=== PATIENT | female | born 1935 | race Two or more races ===

== ENCOUNTER 2016-09-30 00:22 | Observation (INO) | payer SELFPAY ==
[2016-09-30] MEDS ORDERED: ASPIRIN 81 MG TABLET, CHEWABLE PO ONE (00:32)
--- NOTE | 2016-09-30 00:50 | ER Document Report ---
ED General - General Chief Complaint: Shortness Of Breath Stated Complaint: SHORT OF BREATH,CHEST PAIN Mode of Arrival: Ambulatory Information source: Patient, Relative - grandson Notes: Patient presents to the emergency department with complaints of chest pain and shortness of breath. Patient reports that for the last couple days she's had a chest pain on the left side of her chest with her left arm hurting and shortness of breath. Tonight the pain increased. Her grandson is interpreting for her because she is and does not understand Vietnamese. She denies past medical history of MS CAD, but reports history of high blood pressure. She is a former smoker. Denies fever vomiting diarrhea. Family reports patient has been forgetful for the past 2 weeks little bit confused. Patient reports chest pain. Like she's been cut. TRAVEL OUTSIDE OF THE [place] IN LAST 30 DAYS: No - HPI Onset: Other - last few days Onset/Duration: Persistent Quality of pain: Sharp - cut Severity: Severe Pain Level: 4 - Related Data Allergies/Adverse Reactions: No Known Allergies Allergy (Verified 09/30/16 01:41) Home Medications: Current Home Medications Enalapril Maleate [Vasotec 10 mg Tablet] 1 tab PO BID 09/30/16 [History] Metoprolol Tartrate [Lopressor 100 mg Tablet] 1 tab PO Q12 09/30/16 [History] Past Medical History - General Information source: Patient, Relative - grandson - Social History Smoking Status: Former Smoker Cigarette use (# per day): No Frequency of alcohol use: None Drug Abuse: None Lives with: Family Family History: Reviewed & Not Pertinent - Past Medical History Cardiac Medical History: Reports: Hx Hypertension Past Surgical History: Reports: Hx Section Review of Systems - Review of Systems Notes: Review HPI for review of systems., All other systems negative Physical Exam - Vital signs Vitals: Temp Pulse Resp BP Pulse Ox 97.9 F 77 18 177/62 H 97 09/30/16 00:30 09/30/16 00:30 09/30/16 00:30 09/30/16 00:30 09/30/16 00:30 - Notes Notes: PHYSICAL EXAMINATION: GENERAL: Well-appearing and in no acute distress Nontoxic looking HEAD: Atraumatic, normocephalic. EYES: Pupils equal round , extraocular movements intact, sclera anicteric, conjunctiva are normal. ENT: nares patent, Moist mucous membranes. NECK: Normal range of motion, supple without lymphadenopathy LUNGS: CTAB and equal. No wheezes rales or rhonchi. HEART: Regular rate and rhythm without murmurs ABDOMEN: Soft, no tenderness. No guarding, no rebound EXTREMITIES: Normal range of motion, no pitting edema. NEUROLOGICAL: Cranial nerves grossly intact. Normal sensory/motor PSYCH: Normal mood, normal affect. SKIN: Warm, Dry, normal turgor, no rashes or lesions noted Course - Re-evaluation Re-evalutation: 09/30/16 02:04 History =1 ECG-=1 Age 80-=2 Risk Factors= 1 Troponin =0 HEART score-= 5 09/30/16 02:31 Patient reports chest pain went away after sublingual nitroglycerin. Reports headache increased. Consulted Dr Henriquez he agrees with admission 09/30/16 02:[address] Le patient be admitted to telemetry obvious family and patient updated on plan of care - Vital Signs Vital signs: Temp Pulse Resp BP Pulse Ox 97.7 F 57 L 16 137/49 H 96 09/30/16 04:54 09/30/16 04:54 09/30/16 04:54 09/30/16 04:54 09/30/16 04:54 - Laboratory Result Diagrams: 09/30/16 01:20 09/30/16 01:20 Laboratory results interpreted by md: 09/30/16 09/30/16 09/30/16 01:08 01:20 01:20 BUN 25 H NT-Pro-B Natriuret Pep 544 H Lipase 328.0 H Urine Blood MODERATE H Ur Leukocyte Esterase MODERATE H - Diagnostic Test Radiology reviewed: Image reviewed, Reports reviewed - IMPRESSION: NO ACUTE RADIOGRAPHIC FINDING IN THE CHEST. - EKG Interpretation by Oh EKG shows normal: Sinus rhythm Additional EKG results interpreted by md: 09/30/16 02:35 SR, inverted T in septal/lateral Discharge - Discharge Clinical Impression: Shortness of breath Chest pain Qualifiers: Chest pain type: unspecified Qualified Code(s): R07.9 - Chest pain, unspecified Disposition: ADMITTED OBSERVATION Admitting Provider: Janet Le Unit Admitted: Telemetry
[2016-09-30 01:28] LABS: ABSOLUTE BASOPHILS # (AUTO) 0.1 10^3/uL (0.0-0.2); ABSOLUTE EOSINOPHILS # (AUTO) 0.2 10^3/uL (0.0-0.6); ABSOLUTE LYMPHOCYTES (AUTO) 2.4 10^3/uL (0.5-4.7); ABSOLUTE MONOCYTES (AUTO) 0.7 10^3/uL (0.1-1.4); ABSOLUTE NEUT (AUTO) 3.6 10^3/uL (1.7-8.2); BASOPHILS % (AUTO) 1.2 % (0-2); EOSINOPHILS % (AUTO) 3.4 % (0-6); HEMATOCRIT 41.5 % (36.0-47.0); HEMOGLOBIN 13.9 g/dL (12.0-15.5); HGB HCT DIFFERENCE 0.2; LYMPHOCYTES % (AUTO) 34.2 % (13-45); MEAN CORPUSCULAR HEMOGLOBIN 31.9 pg (27.0-33.4); MEAN CORPUSCULAR HGB CONC 33.5 g/dL (32.0-36.0); MEAN CORPUSCULAR VOLUME 95 fl (80-97); MONOCYTES % (AUTO) 9.9 % (3-13); RED BLOOD COUNT 4.36 10^6/uL (3.72-5.28); RED CELL DISTRIBUTION WIDTH 13.1 % (11.5-14.0); SEGMENTED NEUTROPHILS % (AUTO) 51.3 % (42-78); WHITE BLOOD COUNT 6.9 10^3/uL (4.0-10.5)
[2016-09-30 01:48] LABS: APPEARANCE,URINE SLIGHTLY-CLOUDY; BILIRUBIN,URINE NEGATIVE (NEGATIVE); GLUCOSE, URINE NEGATIVE (NEGATIVE); KETONES,URINE NEGATIVE (NEGATIVE); LEUKOCYTE ESTERASE,URINE MODERATE (NEGATIVE); NITRITE,URINE NEGATIVE (NEGATIVE); PROTEIN,URINE NEGATIVE (NEGATIVE); URINE SPECIFIC GRAVITY 1.014; UROBILINOGEN,URINE NEGATIVE mg/dL (<2.0)
[2016-09-30 01:52] LABS: ALANINE AMINOTRANSFERASE 33 U/L (9-52); ALBUMIN 3.9 g/dL (3.5-5.0); ALKALINE PHOSPHATASE 119 U/L (38-126); ANION GAP 10 (5-19); ASPARTATE AMINO TRANSFERASE 27 U/L (14-36); BILIRUBIN,TOTAL 0.3 mg/dL (0.2-1.3); BLOOD UREA NITROGEN 25 mg/dL (7-20); CALCIUM 9.1 mg/dL (8.4-10.2); CARBON DIOXIDE 28 mmol/L (22-30); CHLORIDE 104 mmol/L (98-107); CREATINE KINASE 49 U/L (30-135); CREATININE RESULT 0.83 mg/dL (0.52-1.25); GLUCOSE 104 mg/dL (75-110); POTASSIUM 4.1 mmol/L (3.6-5.0); TOTAL PROTEIN 7.1 g/dL (6.3-8.2)
[2016-09-30 02:04] LABS: CREATINE KINASE MB 0.94 ng/mL (<4.55)
[2016-09-30 02:08] LABS: TROPONIN I < 0.012 ng/mL
[2016-09-30] MEDS ORDERED: NITROGLYCERIN 0.4 MG/TAB 25 TAB/BOTTLE SL PRN ×2 (02:10→02:40)
[2016-09-30] MEDS ORDERED: NITROGLYCERIN 2% OINTMENT 1 GM PACKET TP ONE (02:12)
[2016-09-30] MEDS ORDERED: IBUPROFEN 800 MG TABLET PO ONE (02:31)
[2016-09-30] MEDS ORDERED: FUROSEMIDE INJ/PF 40 MG/4 ML SDV IV ONE (02:40)
[2016-09-30] MEDS ORDERED: MAG HYDROX/AL HYDROX/SIMETH SUSP 30 ML UDCUP PO PRN (02:40)
[2016-09-30] MEDS ORDERED: LACTULOSE SYRUP 20 GM/30 ML UDCUP PO ONE (02:40)
[2016-09-30] MEDS ORDERED: ONDANSETRON HCL INJ/PF 4 MG/2 ML SDV IV PRN (02:40)
[2016-09-30] MEDS ORDERED: ENALAPRIL MALEATE 5 MG TABLET PO ONE (03:15)
[2016-09-30] MEDS ORDERED: ATORVASTATIN CALCIUM 80 MG TABLET PO ONE (03:15)
[2016-09-30] MEDS ORDERED: FAMOTIDINE 20 MG TABLET PO ONE (03:15)
--- NOTE | 2016-09-30 04:48 | PDOC H&P ---
History of Present Illness Admission Date/PCP: 09/30/16 02:40 Patient complains of: Left-sided chest pain History of Present Illness: SHAWNA CADET is a 80 year old Hebrew-speaking female with a past medical history of hypertension, who had been her usual state of health until approximately 48 hours ago having the onset of left-sided chest pain noted while at rest. He was dull in nature but exacerbated by movement of her left arm and palpation to her left chest wall she cannot recall a trauma, but also denies nausea vomiting diaphoresis or palpitations. She denies previous episode. Is currently pain-free. In the emergency room she's found to have mildly uncontrolled hypertension and an otherwise unremarkable workup she's referred to the hospitalist for observation. Past Medical History Cardiac Medical History: Reports: Hypertension Pulmonary Medical History: Reports: None EENT Medical History: Reports: None Neurological Medical History: Reports: None Endocrine Medical History: Reports: None Renal/ Medical History: Reports: None GI Medical History: Reports: None Musculoskeltal Medical History: Reports: Arthritis Psychiatric Medical History: Reports: None Traumatic Medical History: Reports: None Hematology: Reports: None Infectious Medical History: Reports: None Past Surgical History Past Surgical History: Reports: Section - x1 Social History Information Source: Patient Lives with: Family Smoking Status: Former Smoker Number of Years Smokin Last Time Smoked: 1970 Frequency of Alcohol Use: None Drugs: None Hx Prescription Drug Abuse: No - Advance Directive Resuscitation Status: Full Code Family History Family History: COPD, Hypertension Parental Family History Reviewed: Yes Children Family History Reviewed: Yes Sibling(s) Family History Reviewed.: Yes Medication/Allergy Home Medications: Enalapril Maleate [Vasotec 10 mg Tablet] 1 tab PO BID 09/30/16 Metoprolol Tartrate [Lopressor 100 mg Tablet] 1 tab PO Q12 09/30/16 Allergies/Adverse Reactions: No Known Allergies Allergy (Verified 09/30/16 01:41) Review of Systems Constitutional: ABSENT: chills, fever(s), headache(s), weight gain, weight loss Eyes: ABSENT: visual disturbances Ears: ABSENT: hearing changes Cardiovascular: ABSENT: chest pain, dyspnea on exertion, edema, orthropnea, palpitations Respiratory: ABSENT: cough, hemoptysis Gastrointestinal: PRESENT: constipation. ABSENT: abdominal pain, diarrhea, hematemesis, hematochezia, nausea, vomiting Genitourinary: ABSENT: dysuria, hematuria Musculoskeletal: ABSENT: joint swelling Integumentary: ABSENT: rash, wounds Neurological: ABSENT: abnormal gait, abnormal speech, confusion, dizziness, focal weakness, syncope Psychiatric: ABSENT: anxiety, depression, homidical ideation, suicidal ideation Endocrine: ABSENT: cold intolerance, heat intolerance, polydipsia, polyuria Hematologic/Lymphatic: ABSENT: easy bleeding, easy bruising Physical Exam Vital Signs: Temp Pulse Resp BP Pulse Ox 97.4 F 59 L 21 H 123/88 H 98 09/30/16 04:17 09/30/16 04:17 09/30/16 04:21 09/30/16 04:21 09/30/16 04:21 General appearance: PRESENT: no acute distress, well-developed, well-nourished Head exam: PRESENT: atraumatic, normocephalic Eye exam: PRESENT: conjunctiva pink, EOMI, PERRLA. ABSENT: scleral icterus Ear exam: PRESENT: normal external ear exam Mouth exam: PRESENT: moist, tongue midline Neck exam: ABSENT: carotid bruit, JVD, lymphadenopathy, thyromegaly Respiratory exam: PRESENT: clear to auscultation joe. ABSENT: rales, rhonchi, wheezes Cardiovascular exam: PRESENT: RRR. ABSENT: diastolic murmur, rubs, systolic murmur Pulses: PRESENT: normal dorsalis pedis pul Vascular exam: PRESENT: normal capillary refill GI/Abdominal exam: PRESENT: normal bowel sounds, soft. ABSENT: distended, guarding, mass, organolmegaly, rebound, tenderness Rectal exam: PRESENT: deferred Extremities exam: PRESENT: full ROM. ABSENT: calf tenderness, clubbing, pedal edema Musculoskeletal exam: PRESENT: other - Reproducible chest wall pain to the left pectoralis major. No breast pain patient verifies this is the pain that she seeks evaluation of Neurological exam: PRESENT: alert, awake, oriented to person, oriented to place , oriented to time, oriented to situation, CN II-XII grossly intact. ABSENT: motor sensory deficit Psychiatric exam: PRESENT: appropriate affect, normal mood. ABSENT: homicidal ideation, suicidal ideation Skin exam: PRESENT: dry, intact, warm. ABSENT: cyanosis, rash Results Impressions: Chest X-Ray 09/30/16 00:33 IMPRESSION: NO ACUTE RADIOGRAPHIC FINDING IN THE CHEST. Assessment & Plan - Diagnosis (1) Atypical chest pain Is this a current diagnosis for this admission?: YesPlan: Atypical chest pain symptomatically management. though the patient's pain is atypical there are multiple risk factors for coronary artery disease and subsequently will observe and evaluation of acute coronary syndrome versus coronary artery disease with anginal equivalents. Cardiac monitoring blood pressure Q6 hours ,TSH, lipid profile, serial cardiac enzymes (2) Hypertension Is this a current diagnosis for this admission?: YesPlan: Continue outpatient Lopressor and DOMINGO inhibitor (3) Constipation Is this a current diagnosis for this admission?: YesPlan: Lactulose and bowel regiment - Time Time Spent: 30 to 50 Minutes
[2016-09-30] MEDS ORDERED: INFLUENZA ADLT QUAD (36MOS+) 2016-17 VAC 0.5 ML SYR IM PRN (05:23)
[2016-09-30] MEDS ORDERED: HEPARIN SOD (PORCINE) 5,000 UNIT/ML 1 ML SYRINGE SUBCUT SCH (06:00)
[2016-09-30 07:39] LABS: CHOLESTEROL 219.29 mg/dL (0-200); CREATINE KINASE 50 U/L (30-135); Direct HDL 60 mg/dL (>40); TRIGLYCERIDES 85 mg/dL (<150)
[2016-09-30 07:50] LABS: DIRECT LDL 153 mg/dL (<100)
[2016-09-30 07:51] LABS: CREATINE KINASE MB 1.07 ng/mL (<4.55)
[2016-09-30 07:54] LABS: TROPONIN I < 0.012 ng/mL
[2016-09-30 08:24] LABS: CREATINE KINASE MB 1.07 ng/mL (<4.55); TROPONIN I < 0.012 ng/mL
--- NOTE | 2016-09-30 08:25 | EKG REPORT ---
SEVERITY:- ABNORMAL ECG - SINUS RHYTHM NONSPECIFIC T ABNORMALITIES, ANT-LAT LEADS : Confirmed by: Meryl Arciniega 30-Sep-2016 08:24:36
[2016-09-30] MEDS ORDERED: METOPROLOL TARTRATE 100 MG TABLET PO SCH ×2 (10:00)
[2016-09-30] MEDS ORDERED: FAMOTIDINE 20 MG TABLET PO SCH (10:00)
[2016-09-30] MEDS ORDERED: ENALAPRIL MALEATE 5 MG TABLET PO SCH (10:00)
[2016-09-30 11:11] VITALS: BP 137/49
--- NOTE | 2016-09-30 11:21 | PDOC DISCHARGE SUMMARY ---
General - Admit/Disc Date/PCP Admission Date/Primary Care Provider: 09/30/16 02:40 Discharge Date: 09/30/16 - Discharge Diagnosis (1) Atypical chest pain Is this a current diagnosis for this admission?: YesSummary: The patient had pain that was reproducible with palpation of the left costochondral junction consistent with costochondritis. Patient had negative cardiac enzymes. (2) Gout Is this a current diagnosis for this admission?: YesSummary: Patient had some synovial swelling and tenderness of the right ankle suspicious for gout. Arthrocentesis was not performed. She will be sent home with prednisone. (3) Headache Is this a current diagnosis for this admission?: YesSummary: The patient relates that she's had right-sided headache for the last several months. She's not had any visual loss and had a sedimentation rate of 17. She will be sent home on prednisone 60 mg a day. I was concern initially there might be the possibility of temporal arteritis but unlikely given a normal sedimentation rate. Will defer to the primary care doctor whether or not she needs referral to an ultrasonic solderer. (4) Constipation Is this a current diagnosis for this admission?: Yes (5) Hypertension Is this a current diagnosis for this admission?: Yes - Additional Information Resuscitation Status: Full Code Discharge Diet: Cardiac Discharge Activity: Activity As Tolerated Home Medications: Aspirin [Adult Low Dose Aspirin EC] 81 mg PO DAILY #30 tablet. 09/30/16 Enalapril Maleate [Vasotec 10 mg Tablet] 10 mg PO Q12 09/30/16 Metoprolol Tartrate [Lopressor 100 mg Tablet] 100 mg PO Q12 09/30/16 Prednisone 10 mg PO DAILY #60 tablet 09/30/16 History of Present Illness History of Present Illness: SHAWNA CADET is a 80 year old female with no history of heart disease who presented with some atypical chest pain. This chest pain occurred for 2 days prior to presentation and was reproducible palpation of the left costochondral junction. Patient also relates that she's had right-sided temporal headaches for the last 2 months but no visual changes. Hospital Course Hospital Course: 80-year-old female who presented with atypical chest pain. She felt this most likely represented costochondritis as it was reproducible palpation of the left costochondral junction. Patient was monitored on telemetry and had negative cardiac enzymes. The patient also complained of a right-sided temporal headache for the last several months and a sedimentation rate was done and it was 17. I have some concern given the fact this is been continuous for the last several months on the right area about the possibility of temporal arteritis. Given a normal sedimentation rate it makes it less likely however we 'll send her home on a seven-day course of prednisone 60 mg daily. This is for her headache to see if it improves with the prednisone and also to treat her gout in her ankle. The patient will be seen by her primary care doctor sometime this week and will defer to his judgment whether or not the patient needs to be referred to ophthalmology for evaluation of this right temporal headache. Physical Exam Vital Signs: Temp Pulse Resp BP Pulse Ox 98.3 F 51 L 16 137/49 H 99 09/30/16 11:07 09/30/16 11:07 09/30/16 11:07 09/30/16 11:07 09/30/16 11:07 Intake & Output 09/29/16 09/30/16 10/01/16 06:59 06:59 06:59 Intake Total 8 Output Total 0 Balance 8 Weight 51.2 kg General appearance: PRESENT: no acute distress Eye exam: PRESENT: conjunctiva pink Mouth exam: PRESENT: moist, tongue midline Neck exam: ABSENT: JVD Respiratory exam: PRESENT: chest wall tenderness - Left costochondral junction tenderness, clear to auscultation joe. ABSENT: rales, rhonchi, wheezes Cardiovascular exam: PRESENT: RRR. ABSENT: diastolic murmur, rubs, systolic murmur GI/Abdominal exam: PRESENT: normal bowel sounds, soft. ABSENT: distended, guarding, mass, organolmegaly, rebound, tenderness Extremities exam: PRESENT: joint swelling - Patient has swelling of her left ankle synovial area. ABSENT: calf tenderness, clubbing, pedal edema Neurological exam: PRESENT: alert, awake, oriented to person, oriented to place , oriented to time, oriented to situation Psychiatric exam: PRESENT: appropriate affect Skin exam: PRESENT: dry, intact, warm. ABSENT: cyanosis, rash Results Laboratory Results: 09/30/16 07:00 Triglycerides 85 Cholesterol 219.29 H LDL Cholesterol Direct 153 H VLDL Cholesterol 17.0 HDL Cholesterol 60 09/30/16 09/30/16 09/30/16 06:45 07:00 07:00 Creatine Kinase 50 CK-MB (CK-2) 1.07 1.07 Troponin I < 0.012 < 0.012 Impressions: Chest X-Ray 09/30/16 00:33 IMPRESSION: NO ACUTE RADIOGRAPHIC FINDING IN THE CHEST. Qualifiers PATEINT BEING DISCHARGED WITH ANY OF THE FOLLOWING DIAGNOSIS?: No Plan Discharge Plan: A she is discharged home and follow-up with his primary care doctor in 1 week to decide whether or not she needs ophthalmology evaluation for evaluation of right temporal headaches. Please note that the interview and exam was done with a Bahamian-speaking reclamation worker present. Time Spent: Greater than 30 Minutes
[2016-09-30] MEDS ORDERED: PREDNISONE 20 MG TABLET PO ONE (12:00)
[2016-09-30] MEDS ORDERED: ATORVASTATIN CALCIUM 80 MG TABLET PO SCH (22:00)
== END 2016-09-30 11:38 | disposition home or self-care (01) ==
LOC: ER 00:22 → EH 02:40 → UNDOADMOB 02:44 → EH 02:44 → 3N 04:48
PROVIDERS: ADMIT Internal Medicine; ATTEND Internal Medicine
DX: R07.89 Other chest pain (principal); M10.9 Gout, unspecified; R51 Headache; K59.00 Constipation, unspecified; I10 Essential (primary) hypertension; Z79.82 Long term (current) use of aspirin
CPT/HCPCS: 93005; 99285; 96374; 36415; 82553; 82550; 83690; 85025; 85652; 80053; 81001; 84484; 80061; 83880; 71010; 93010; G0378 ×2; J1644; J1940; J7512; J3490

== ENCOUNTER 2016-11-09 17:14 | Emergency (ER) | payer SELFPAY ==
--- NOTE | 2016-11-09 18:12 | ER Document Report ---
ED Medical Screen (RME) - General Chief Complaint: Palpitations Stated Complaint: ANXIETY/HEAD PAIN Mode of Arrival: Wheelchair Information source: Patient, Relative Notes: 80 y/o F presents to ED c/o HTN, headache, palpitations, and intermittent sob. Reports took her home meds this morning but BP still high. Denies fever or chest pain. I have greeted and performed a rapid initial assessment of this patient. A comprehensive ED assessment and evaluation of the patient, analysis of test results and completion of the medical decision making process will be conducted by additional ED providers. TRAVEL OUTSIDE OF THE [place] IN LAST 30 DAYS: No - Related Data Allergies/Adverse Reactions: No Known Allergies Allergy (Verified 11/09/16 18:07) Past Medical History - Past Medical History Cardiac Medical History: Reports: Hx Hypertension Renal/ Medical History: Denies: Hx Peritoneal Dialysis Musculoskeltal Medical History: Reports Hx Arthritis Psychiatric Medical History: Reports: Hx Depression Past Surgical History: Reports: Hx Section - Immunizations Hx Diphtheria, Pertussis, Tetanus Vaccination: Yes Physical Exam - Vital signs Vitals: Temp Pulse Resp BP Pulse Ox 98.0 F 75 18 199/61 H 95 11/09/16 18:01 11/09/16 18:01 11/09/16 18:01 11/09/16 18:01 11/09/16 18:01 - General General appearance: Appears well, Alert In distress: None - Respiratory Respiratory status: No respiratory distress - Neurological Neuro grossly intact: Yes Cognition: Normal Orientation: AAOx4 [place] Coma Scale Eye Opening: Spontaneous [place] Coma Scale Verbal: Oriented [place] Coma Scale Motor: Obeys Commands [place] Coma Scale Total: 15 Speech: Normal Motor strength normal: LUE, RUE, LLE, RLE Course - Re-evaluation Re-evalutation: 11/09/16 18:11 Reason states will take evening dose of her high blood pressure medication ( metoprolol and lisinopril) now as she is due for them. - Vital Signs Vital signs: Temp Pulse Resp BP Pulse Ox 98.0 F 75 18 199/61 H 95 11/09/16 18:01 11/09/16 18:01 11/09/16 18:01 11/09/16 18:01 11/09/16 18:01
[2016-11-09 20:36] LABS: ABSOLUTE BASOPHILS # (AUTO) 0.1 10^3/uL (0.0-0.2); ABSOLUTE EOSINOPHILS # (AUTO) 0.2 10^3/uL (0.0-0.6); ABSOLUTE LYMPHOCYTES (AUTO) 2.5 10^3/uL (0.5-4.7); ABSOLUTE MONOCYTES (AUTO) 0.6 10^3/uL (0.1-1.4); ABSOLUTE NEUT (AUTO) 4.4 10^3/uL (1.7-8.2); BASOPHILS % (AUTO) 0.8 % (0-2); EOSINOPHILS % (AUTO) 2.4 % (0-6); HEMATOCRIT 40.2 % (36.0-47.0); HEMOGLOBIN 13.5 g/dL (12.0-15.5); HGB HCT DIFFERENCE 0.3; LYMPHOCYTES % (AUTO) 32.5 % (13-45); MEAN CORPUSCULAR HGB CONC 33.6 g/dL (32.0-36.0); MEAN CORPUSCULAR VOLUME 95 fl (80-97); MONOCYTES % (AUTO) 7.6 % (3-13); RED BLOOD COUNT 4.22 10^6/uL (3.72-5.28); RED CELL DISTRIBUTION WIDTH 13.2 % (11.5-14.0); SEGMENTED NEUTROPHILS % (AUTO) 56.7 % (42-78); WHITE BLOOD COUNT 7.7 10^3/uL (4.0-10.5)
[2016-11-09 20:40] LABS: APPEARANCE,URINE SLIGHTLY-CLOUDY; BILIRUBIN,URINE NEGATIVE (NEGATIVE); GLUCOSE, URINE NEGATIVE (NEGATIVE); KETONES,URINE NEGATIVE (NEGATIVE); LEUKOCYTE ESTERASE,URINE SMALL (NEGATIVE); NITRITE,URINE NEGATIVE (NEGATIVE); PROTEIN,URINE NEGATIVE (NEGATIVE); URINE SPECIFIC GRAVITY 1.004; UROBILINOGEN,URINE NEGATIVE mg/dL (<2.0)
[2016-11-09 20:54] LABS: ALANINE AMINOTRANSFERASE 27 U/L (9-52); ALKALINE PHOSPHATASE 102 U/L (38-126); ANION GAP 10 (5-19); ASPARTATE AMINO TRANSFERASE 31 U/L (14-36); BILIRUBIN,TOTAL 0.5 mg/dL (0.2-1.3); BLOOD UREA NITROGEN 13 mg/dL (7-20); CALCIUM 9.6 mg/dL (8.4-10.2); CARBON DIOXIDE 27 mmol/L (22-30); CHLORIDE 103 mmol/L (98-107); CREATINE KINASE 61 U/L (30-135); CREATININE RESULT 0.59 mg/dL (0.52-1.25); GLUCOSE 106 mg/dL (75-110); POTASSIUM 4.7 mmol/L (3.6-5.0); SODIUM 140.2 mmol/L (137-145); TOTAL PROTEIN 7.4 g/dL (6.3-8.2)
[2016-11-09] MEDS ORDERED: PROCHLORPERAZINE EDISYLATE INJ 10 MG/2 ML VIAL IM ONE (21:16)
[2016-11-09] MEDS ORDERED: DIPHENHYDRAMINE HCL 50 MG CAPSULE PO ONE (21:16)
[2016-11-09 21:19] LABS: CREATINE KINASE MB 0.93 ng/mL (<4.55)
[2016-11-09 21:20] LABS: TROPONIN I < 0.012 ng/mL
[2016-11-09] MEDS ORDERED: LORAZEPAM 0.5 MG TABLET PO ONE (21:43)
[2016-11-09] MEDS ORDERED: CLONIDINE HCL 0.2 MG TABLET PO ONE (22:21)
--- NOTE | 2016-11-09 22:48 | ER Document Report ---
ED General - General Chief Complaint: Palpitations Stated Complaint: ANXIETY/HEAD PAIN Mode of Arrival: Wheelchair Information source: Patient, Relative Notes: 80-year-old female presents with complaints of headache anxiety and high blood pressure. Patient has a history of high blood pressure is on metoprolol and lisinopril twice daily, patient notes she has been taking her medications as prescribed. Patient denies any neurological deficits otherwise denies any nausea vomiting TRAVEL OUTSIDE OF THE [place] IN LAST 30 DAYS: No - HPI Onset: This afternoon Onset/Duration: Persistent Quality of pain: Achy Severity: Mild Pain Level: 1 Associated symptoms: Headache, Nausea, Vomiting Exacerbated by: Denies Relieved by: Denies Similar symptoms previously: No Recently seen / treated by doctor: No - Related Data Allergies/Adverse Reactions: No Known Allergies Allergy (Verified 11/09/16 18:07) Past Medical History - General Information source: Patient, Relative - Social History Smoking Status: Never Smoker Cigarette use (# per day): No Chew tobacco use (# tins/day): No Smoking Education Provided: No Family History: Reviewed & Not Pertinent Patient has suicidal ideation: No Patient has homicidal ideation: No - Past Medical History Cardiac Medical History: Reports: Hx Hypertension Renal/ Medical History: Denies: Hx Peritoneal Dialysis Musculoskeltal Medical History: Reports Hx Arthritis Psychiatric Medical History: Reports: Hx Depression Past Surgical History: Reports: Hx Section - Immunizations Hx Diphtheria, Pertussis, Tetanus Vaccination: Yes Review of Systems - Review of Systems Notes: REVIEW OF SYSTEMS: CONSTITUTIONAL : Denies fever, chills, or sweats. Denies recent illness. EENT: Denies eye, ear, throat, or mouth pain or symptoms. Denies nasal or sinus congestion or discharge. Denies throat, tongue, or mouth swelling or difficulty swallowing. CARDIOVASCULAR: Denies chest pain. Denies palpitations or racing or irregular heart beat. Denies ankle edema. RESPIRATORY: Denies cough, cold, or chest congestion. Denies shortness of breath, difficulty breathing, or wheezing. GASTROINTESTINAL: Denies abdominal pain or distention. Denies nausea, vomiting , or diarrhea. Denies blood in vomitus, stools, or per rectum. Denies black, tarry stools. Denies constipation. GENITOURINARY: Denies difficulty urinating, painful urination, burning, frequency, blood in urine, or discharge. FEMALE GENITOURINARY: Denies vaginal bleeding, heavy or abnormal periods, irregular periods. Denies vaginal discharge or odor. MUSCULOSKELETAL: Denies back or neck pain or stiffness. Denies joint pain or swelling. SKIN: Denies rash, lesions or sores. HEMATOLOGIC : Denies easy bruising or bleeding. LYMPHATIC: Denies swollen, enlarged glands. NEUROLOGICAL: Admits to headache PSYCHIATRIC: Admits to anxiety ALL OTHER SYSTEMS REVIEWED AND NEGATIVE. Dictation was performed using [employer] voice recognition software PHYSICAL EXAMINATION: GENERAL: Well-appearing, well-nourished and in no acute distress. Patient is hypertensive HEAD: Atraumatic, normocephalic. EYES: Pupils equal round and reactive to light, extraocular movements intact, conjunctiva are normal. ENT: Nares patent, oropharynx clear without exudates. Moist mucous membranes. NECK: Normal range of motion, supple without lymphadenopathy LUNGS: Breath sounds clear to auscultation bilaterally and equal. No wheezes rales or rhonchi. HEART: Regular rate and rhythm without murmurs ABDOMEN: Soft, nontender, nondistended abdomen. No guarding, no rebound. No masses appreciated. Female : deferred Musculoskeletal: Normal range of motion, no pitting or edema. No cyanosis. NEUROLOGICAL: Cranial nerves grossly intact. Normal speech, normal gait. Normal sensory, motor exams PSYCH: Normal mood, normal affect. SKIN: Warm, Dry, normal turgor, no rashes or lesions noted. Physical Exam - Vital signs Vitals: Temp Pulse Resp BP Pulse Ox 98.0 F 75 18 199/61 H 95 11/09/16 18:01 11/09/16 18:01 11/09/16 18:01 11/09/16 18:01 11/09/16 18:01 Course - Re-evaluation Re-evalutation: 11/09/16 22:35 Family refuses a an sweeper driver, they wish for family member to interpret, Patient's headache has resolved with medication. CT of the head noted no acute abnormality. Patient is still noted to be hypotensive and was given clonidine and will be reevaluated. Patient otherwise has no complaints has no neurological deficits no signs of any CVA 11/09/16 23:34 pts blood pressure has improved, will dc home iwht clonidine to be taken only if bp is still elevated and follow up with pcp for evaluation After performing a Medical Screening Examination, I estimate there is LOW risk for ACUTE GLAUCOMA, TEMPORAL ARTERITIS, MENINGITIS, INCRANIAL HEMORRHAGE, or ISCHEMIC STROKE thus I consider the discharge disposition reasonable. The patient and I have discussed the diagnosis and risks, and we agree with discharging home with close follow-up with the understanding that symptoms and presentations can change. We also discussed returning to the Emergency Department immediately if new or worsening symptoms occur. We have discussed the symptoms which are most concerning (e.g., changing or worsening symptoms, new numbness or weakness, vomiting, fever) that necessitate immediate return. - Vital Signs Vital signs: Temp Pulse Resp BP Pulse Ox 98.0 F 75 21 H 190/82 H 95 11/09/16 18:01 11/09/16 18:01 11/09/16 22:18 11/09/16 22:18 11/09/16 22:18 - Laboratory Result Diagrams: 11/09/16 20:16 11/09/16 20:16 Laboratory results interpreted by me: 11/09/16 20:16 Urine Blood SMALL H Ur Leukocyte Esterase SMALL H - Diagnostic Test Radiology reviewed: Image reviewed, Reports reviewed Discharge - Discharge Clinical Impression: Headache Qualifiers: Headache type: unspecified Headache chronicity pattern: acute headache Intractability: not intractable Qualified Code(s): R51 - Headache Hypertension Qualifiers: Hypertension type: other secondary hypertension Qualified Code(s): I15.8 - Other secondary hypertension Condition: Stable Disposition: HOME, SELF-CARE Instructions: High Blood Pressure, Requiring Treatment ([facility]) Additional Instructions: Follow up with your physician tomorrow for further care or return to the ED IMMEDIATELY if symptoms worsen or new concerns occur Prescriptions: Clonidine HCl 0.2 mg PO BID #20 tablet Print Language: Botswanan
[2016-11-10 03:25] VITALS: BP 106/57
--- NOTE | 2016-11-10 10:35 | EKG REPORT ---
SEVERITY:- NORMAL ECG - SINUS RHYTHM : Confirmed by: Meryl Arciniega 10-Nov-2016 10:34:37
== END 2016-11-10 00:31 | disposition home or self-care (01) ==
LOC: ER 17:14
DX: R51 Headache (principal); F41.9 Anxiety disorder, unspecified; I10 Essential (primary) hypertension; Z79.899 Other long term (current) drug therapy
CPT/HCPCS: 93005; 99285; 96372; 36415; 82553; 82550; 85025; 80053; 81001; 84484; 71020; 70450; 93010; J0780